=== PATIENT | male | born 1940 ===

== ENCOUNTER 2021-04-09 05:45 | Day surgery (SDC) | payer OTHER ==
[~2021-04-09 05:45] MED LIST: AMLODIPINE-OLM1 EACH PO; METFORMIN HCL1000 M2 PO
== END 2021-04-09 12:00 | disposition home or self-care (01) ==
LOC: CIR.AMB 05:45
PROVIDERS: ATTEND Orthopaedic Surgery Hand Surgery
DX: M67.432 Ganglion, left wrist (principal)